=== PATIENT | female | born 1945 | race Caucasian/White ===

== ENCOUNTER 2020-10-13 15:58 | Inpatient (IN) | payer MEDICARE, BC ==
[2020-10-13 16:39] LABS: #Eosinphils 0.1 thou/uL (0.0-0.7); #Lymphocytes 1.1 thou/uL (1.20-3.40); #Monocytes 0.5 thou/uL (0.11-0.59); #Neutrophils 8.9 thou/uL (1.40-6.50); %Basophils 0.3 % (0.0-1.0); %Eosinophils 0.6 % (0.0-10.0); %Monocytes 4.5 % (0.0-10.0); %Neutrophils 84.7 % (42.0-75.0); Hemoglobin 15.1 g/dL (12.0-16.0); Mean Corpuscular HGB CONC 31.3 g/dL (32.0-36.0); Mean Corpuscular Hemoglobin 30.2 pg (27.0-31.0); Mean Corpuscular Volume 96.4 fL (78.0-98.0); Mean Platelet Volume 7.7 fL (7.4-10.4); Platelet Count 218 thou/uL (130-400); RBC Distribution Width 11.5 % (11.5-14.5); Red Blood Cell (RBC) Count 5.01 mill/uL (4.20-5.40); White Blood Cell (WBC) Count 10.5 thou/uL (4.8-10.8)
[2020-10-13 16:45] LABS: INR-International Normal Ratio 1.1; PTT 31.9 sec (22.9-36.1); Prothrombin Time 14.8 sec (12.0-14.7)
[2020-10-13 17:00] LABS: ALT (SGPT) 27 U/L (8-55); AST (SGOT) 30 U/L (5-34); Albumin 4.6 g/dL (3.4-4.8); Alkaline Phosphatase 101 U/L (40-110); BUN (Urea Nitrogen) 23 mg/dL (9.8-20.1); Bilirubin, Total 0.2 mg/dL (0.2-1.2); CK (CPK) 58 U/L (29-168); Calc. Creatinine Clearance 0 mL/min (70-130); Calcium 9.3 mg/dL (7.8-10.44); Chloride 105 mmol/L (98-107); Globulin 3.3 g/dL (2.4-3.5); Glucose 406 mg/dL (83-110); Protein, Total 7.9 g/dL (5.8-8.1); Sodium 134 mmol/L (136-145)
[2020-10-13 17:05] LABS: Carbon Dioxide Less than 8 mmol/L (23-31)
[2020-10-13 17:12] LABS: Bacteria/HPF Rare-Few HPF (None Seen); Bilirubin Negative (Negative); Blood, Urine 1+ (Negative); Clarity Clear (Clear); Glucose, Urine (Dipstick) Greater than 1000 mg/dL (Negative); Ketone, Urine Greater than 150 mg/dL (Negative); Leukocyte Negative Leu/uL (Negative); Nitrite Negative (Negative); Protein, Urine (Dipstick) 70 mg/dL (Neg-Trace); Specific Gravity, Urine 1.015 (1.002-1.036); Squamous Epithelial 0-3 HPF (0-3); Urobilinogen Normal mg/dL (Less than 2); WBC/HPF 0-3 HPF (0-3)
[2020-10-13 17:22] LABS: CKMB 3.3 ng/mL (0-6.6)
[2020-10-13] MEDS ORDERED: HumaLOG 300 UNITS/3 ML VIAL ONE (17:50)
[2020-10-13] MEDS ORDERED: INSULIN REGULAR IN 0.9 % NACL 100 UNIT/100 ML BAG ONE (17:50)
[2020-10-13] MEDS ORDERED: Cefepime 2 GM VIAL ONE (17:50)
[2020-10-13] MEDS ORDERED: Insulin Regular 300 UNITS/3 ML VIAL ONE (17:52)
[2020-10-13] MEDS ORDERED: NS 0.9% w/ 20 MEQ KCL 1,000 ML IV ONE (18:00)
[2020-10-13] MEDS ORDERED: Ondansetron PF 4 MG/2 ML Vial IVP PRN (18:36)
[2020-10-13] MEDS ORDERED: D5 1/2 NS w/20 mEq KCL 1,000 ML IV PRN (18:36)
[2020-10-13] MEDS ORDERED: Acetaminophen 325 MG TAB PO PRN (18:36)
[2020-10-13] MEDS ORDERED: Dextrose 5 %-0.45 % NaCl 1,000 ML IV PRN (18:36)
[2020-10-13] MEDS ORDERED: Sodium Chloride 0.9% 1,000 ML IV PRN ×4 (18:36)
[2020-10-13] MEDS ORDERED: NS 0.9% w/ 20 MEQ KCL 1,000 ML IV PRN ×2 (18:36)
[2020-10-13] MEDS ORDERED: Electrolyte Replacement Protocol IVPB SCH (18:36)
[2020-10-13] MEDS ORDERED: HUMULIN R 100 UNITS in Sodium Chloride 0.9% 100 ML IVPB SCH (18:45)
[2020-10-13 19:33] LABS: SARS-CoV-2 NAA Rapid Test DETECTED (NotDetected)
[2020-10-13] MEDS ORDERED: Sodium Bicarbonate 150 MEQ in Dextrose 5% in Water 1,000 ML IV SCH ×2 (19:45→21:00)
[2020-10-13] MEDS ORDERED: Sodium Bicarb 50 MEQ/50 ML Abboject 8.4% SYRINGE ONE (19:52)
[2020-10-13] MEDS ORDERED: Sodium Bicarb 50 MEQ/50 ML Abboject 8.4% SYRINGE IVP SCH ×2 (20:00→22:00)
[2020-10-13 20:11] LABS: BUN (Urea Nitrogen) 26 mg/dL (9.8-20.1); Calc. Creatinine Clearance 0 mL/min (70-130); Calcium 8.4 mg/dL (7.8-10.44); Chloride 112 mmol/L (98-107); Glucose 366 mg/dL (83-110); Potassium 4.7 mmol/L (3.5-5.1); Sodium 136 mmol/L (136-145)
[2020-10-13 20:13] LABS: Magnesium 2.7 mg/dL (1.6-2.6); Phosphorus 5.2 mg/dL (2.3-4.7)
[2020-10-13 20:21] LABS: Carbon Dioxide Less than 8 mmol/L (23-31)
[2020-10-13 20:38] LABS: Hemoglobin A1c Greater than 14.0 % (4.0-6.0)
[2020-10-13 21:19] LABS: BUN (Urea Nitrogen) 27 mg/dL (9.8-20.1); Calc. Creatinine Clearance 0 mL/min (70-130); Calcium 7.9 mg/dL (7.8-10.44); Chloride 115 mmol/L (98-107); Glucose 339 mg/dL (83-110); Potassium 4.8 mmol/L (3.5-5.1); Sodium 138 mmol/L (136-145)
[2020-10-13 21:30] LABS: Carbon Dioxide Less than 8 mmol/L (23-31)
[2020-10-13 21:37] LABS: CKMB 3.2 ng/mL (0-6.6)
[2020-10-13] MEDS ORDERED: Sodium Bicarb 50 MEQ/50 ML VIAL ONE (21:49)
[2020-10-13] MEDS ORDERED: Naloxone HCl 0.4 mg/ml Vial IV SCH (22:45)
[2020-10-13 22:58] LABS: BUN (Urea Nitrogen) 27 mg/dL (9.8-20.1); Calc. Creatinine Clearance 0 mL/min (70-130); Calcium 7.9 mg/dL (7.8-10.44); Chloride 116 mmol/L (98-107); Glucose 297 mg/dL (83-110); Potassium 4.4 mmol/L (3.5-5.1); Sodium 140 mmol/L (136-145)
[2020-10-13] MEDS ORDERED: Naloxone HCl 2 mg/2 ml Syringe ONE (23:01)
[2020-10-13 23:06] LABS: Carbon Dioxide Less than 8 mmol/L (23-31)
[2020-10-14 00:04] LABS: Lactic Acid 1.3 mmol/L (0.5-2.2)
[2020-10-14] MEDS ORDERED: Naloxone HCl 0.4 mg/ml Vial ONE (01:24)
[2020-10-14 01:51] VITALS: BMI 27.2
[2020-10-14] MEDS ORDERED: INSULIN REGULAR IN 0.9 % NACL 100 UNIT/100 ML BAG ONE (02:15)
[2020-10-14 05:36] LABS: Anion Gap 18 mmol/L (10-20); BUN (Urea Nitrogen) 24 mg/dL (9.8-20.1); Calc. Creatinine Clearance 29 mL/min (70-130); Calcium 8.3 mg/dL (7.8-10.44); Carbon Dioxide 11 mmol/L (23-31); Chloride 118 mmol/L (98-107); Glucose 129 mg/dL (83-110); Potassium 3.4 mmol/L (3.5-5.1); Sodium 144 mmol/L (136-145)
[2020-10-14] MEDS ORDERED: Potassium Chloride 20 MEQ in Premix Bag 1 BAG IVPB SCH (07:00)
[2020-10-14 08:14] VITALS: TEMP 97.7
[2020-10-14] MEDS ORDERED: Sodium Chloride 0.9% 1,000 ML IV SCH (09:00)
[2020-10-14] MEDS ORDERED: Insulin Glargine 30 UNITS in Pre-Filled Syringe 1 EACH SC SCH (09:00)
[2020-10-14] MEDS ORDERED: Enoxaparin Sodium 30 MG/0.3 ML SYRINGE SC SCH (09:00)
[2020-10-14] MEDS ORDERED: Heparin 5,000 UNITS/ML VIAL SC SCH (09:00)
[2020-10-14 09:05] LABS: #Lymphocytes 0.6 thou/uL (1.20-3.40); #Monocytes 0.8 thou/uL (0.11-0.59); #Neutrophils 6.2 thou/uL (1.40-6.50); %Eosinophils 0.2 % (0.0-10.0); %Neutrophils 81.7 % (42.0-75.0); Hemoglobin 13.2 g/dL (12.0-16.0); Mean Corpuscular HGB CONC 33.8 g/dL (32.0-36.0); Mean Corpuscular Hemoglobin 31.2 pg (27.0-31.0); Mean Corpuscular Volume 92.3 fL (78.0-98.0); Mean Platelet Volume 7.2 fL (7.4-10.4); Platelet Count 139 thou/uL (130-400); RBC Distribution Width 11.5 % (11.5-14.5); Red Blood Cell (RBC) Count 4.24 mill/uL (4.20-5.40); White Blood Cell (WBC) Count 7.5 thou/uL (4.8-10.8)
[2020-10-14] MEDS ORDERED: Potassium Chloride 20 MEQ/100 ML PREMIX BAG ONE (09:36)
[2020-10-14] MEDS ORDERED: HUMULIN R 100 UNITS in Sodium Chloride 0.9% 100 ML IVPB SCH (09:45)
[2020-10-14] MEDS ORDERED: Dextrose 5%-Lactated Ringers 1,000 ML IV SCH (09:45)
[2020-10-14 09:49] LABS: Anion Gap 20 mmol/L (10-20); BUN (Urea Nitrogen) 23 mg/dL (9.8-20.1); Calc. Creatinine Clearance 30 mL/min (70-130); Calcium 8.1 mg/dL (7.8-10.44); Chloride 120 mmol/L (98-107); Glucose 94 mg/dL (83-110); Potassium 4.4 mmol/L (3.5-5.1); Sodium 145 mmol/L (136-145)
[2020-10-14 10:08] LABS: Carbon Dioxide 9 mmol/L (23-31)
[2020-10-14] MEDS ORDERED: D5 LR w/20 mEq KCL 1,000 ML IV SCH (10:45)
[2020-10-14] MEDS ORDERED: Sodium Bicarb 50 MEQ/50 ML VIAL ONE (11:04)
[2020-10-14 11:33] LABS: Base Excess-Venous Less than -30.0 mmol/L (-2.0 to 3.0); Bicarbonate (HCO3v) 3.2 mmol/L (22.0-28.0); CO2 Tension (PvCO2) 31.8 mmHg (40.0-50.0); vO2 Saturation-calc 90.5 % (60.0-85.0)
[2020-10-14 11:34] LABS: Calcium, Ionized 1.23 mmol/L (1.15-1.33); Chloride 112 mmol/L (98-107); Hemoglobin - Calc 16.5 g/dL (12.0-16.0); Potassium 4.9 mmol/L (3.5-5.1); Sodium 129 mmol/L (138-145); T. Carbon Dioxide Less than 5.0 mmol/L (22.0-28.0)
[2020-10-14] MEDS ORDERED: Sodium Bicarb 50 MEQ/50 ML Abboject 8.4% SYRINGE IVP SCH (12:00)
[2020-10-14 12:31] VITALS: BP 142/63
[2020-10-14 13:45] LABS: Anion Gap 21 mmol/L (10-20); BUN (Urea Nitrogen) 24 mg/dL (9.8-20.1); Calc. Creatinine Clearance 28 mL/min (70-130); Calcium 8.3 mg/dL (7.8-10.44); Carbon Dioxide 10 mmol/L (23-31); Chloride 121 mmol/L (98-107); Glucose 245 mg/dL (83-110); Potassium 4.4 mmol/L (3.5-5.1); Sodium 148 mmol/L (136-145)
[2020-10-14] MEDS ORDERED: Lactated Ringer's 1,000 ML IV SCH ×2 (14:00)
[2020-10-14 20:15] LABS: SARS-CoV-2 IgG Ab Non-Reactive (NonReactive); SARS-CoV-2 IgG Index 0.01 S/CO (< 1.40)
[2020-10-15] MEDS ORDERED: Lidocaine 1% w/Epinephrine 1:100K 20 ML VIAL ONE ×2 (14:46→14:58)
[2020-10-16] MEDS ORDERED: Sterile Water 10 ML ONE (14:44)
== END 2020-10-14 14:45 | disposition short-term general hospital (02) | DRG 871 ==
LOC: ERS 15:58 → ERHOLD 18:02
PROVIDERS: ADMIT Family Medicine; ATTEND Family Medicine
PROC: 8E0ZXY6 Isolation (ICD-10-PCS; principal; 2020-10-13)
DX: A41.89 Other specified sepsis (principal); E11.10 Type 2 diabetes mellitus with ketoacidosis without coma; U07.1 COVID-19; G93.41 Metabolic encephalopathy; J12.82 Pneumonia due to coronavirus disease 2019; N17.9 Acute kidney failure, unspecified; N39.0 Urinary tract infection, site not specified; E78.5 Hyperlipidemia, unspecified; E03.9 Hypothyroidism, unspecified; E11.22 Type 2 diabetes mellitus with diabetic chronic kidney disease; I12.9 Hypertensive chronic kidney disease with stage 1 through stage 4 chronic kidney disease, or unspecified chronic kidney disease; M47.816 Spondylosis without myelopathy or radiculopathy, lumbar region; N18.9 Chronic kidney disease, unspecified; Z79.890 Hormone replacement therapy; Z79.82 Long term (current) use of aspirin; Z79.899 Other long term (current) drug therapy; Z79.84 Long term (current) use of oral hypoglycemic drugs; Z83.3 Family history of diabetes mellitus; Z82.49 Family history of ischemic heart disease and other diseases of the circulatory system
CPT/HCPCS: 0240U; 36415; 36416; 70450; 71045; 74176; 80053; 81003; 81015; 82010; 82140; 82330; 82550; 82553; 82728; 82803; 83036; 83605; 83615; 83735; 83930; 84100; 84443; 84484; 85025; 85379; 85610; 85730; 86140; 86769; 86850; 86900; 86901; 87040; 87086; 93005; 94760; J0692; J1644; J1815; J2310; J3480; J3490; J7070

== ENCOUNTER 2020-11-26 15:00 | Outpatient (CLI) | payer MEDICARE, BC ==
[~2020-11-26 15:00] MED LIST: Magnevist 469MG/ML 20 ML VIAL ONE
== END 2020-11-26 15:01 | disposition home or self-care (01) ==
LOC: TBSIIMAG 15:00
PROVIDERS: ATTEND Neurological Surgery
DX: M47.26 Other spondylosis with radiculopathy, lumbar region (principal)
CPT/HCPCS: 72158; A9579

== ENCOUNTER 2020-12-10 12:54 | Outpatient (CLI) | payer MEDICARE, BC | END 2020-12-10 12:55 | disposition home or self-care (01) | LOC: TBSIIMAG 12:54 | PROVIDERS: ATTEND Neurological Surgery | DX: M51.26 Other intervertebral disc displacement, lumbar region (principal); M41.9 Scoliosis, unspecified | CPT/HCPCS: 72120 ==

== ENCOUNTER 2024-09-18 08:02 | Outpatient (CLI) | payer MEDICARE, BC | END 2024-09-18 08:03 | disposition home or self-care (01) | LOC: SCSMRI 08:02 | PROVIDERS: ATTEND Student in an Organized Health Care Education/Training Program | DX: H53.2 Diplopia (principal); I72.8 Aneurysm of other specified arteries | CPT/HCPCS: 36415; 70544; 70549; 82565 ==

== ENCOUNTER 2024-10-04 13:19 | Outpatient (CLI) | payer MEDICARE, BC | END 2024-10-04 13:20 | disposition home or self-care (01) | LOC: BICMRI 13:19 | PROVIDERS: ATTEND Student in an Organized Health Care Education/Training Program | DX: H53.2 Diplopia (principal) | CPT/HCPCS: 36415; 70543; 70553; 82565 ==